=== PATIENT | female | born 1995 | race Caucasian/White ===

== ENCOUNTER 2023-04-02 10:50 | Emergency (ER) | payer BC ==
[2023-04-02 11:16] VITALS: BP 121/66; PULSE 87; RESP 20; TEMP 99.1; BMI 28.3
[2023-04-02 11:37] LABS: HCG,QUALITATIVE URINE Negative
[2023-04-02 12:20] LABS: EPITHELIAL CELLS MANY /hpf
== END 2023-04-02 13:25 | disposition home or self-care (01) ==
LOC: FER 10:50
DX: M54.50 Low back pain, unspecified (principal); R30.0 Dysuria; R31.9 Hematuria, unspecified
CPT/HCPCS: 74176-TC; 81003; 81015; 84703; 87086; 99284-25

== ENCOUNTER 2024-12-17 20:09 | Emergency (ER) | payer BC, OTHER ==
[2024-12-17 20:13] VITALS: BP 131/81; PULSE 77; RESP 18; TEMP 99.1; BMI 29.2
[2024-12-17] MEDS ORDERED: ACETAMINOPHEN 325 MG TABLET (FP) ONE (20:34)
[2024-12-17] MEDS: ACETAMINOPHEN 325 MG TABLET (FP) PO ONE (20:36)
== END 2024-12-17 20:59 | disposition home or self-care (01) ==
LOC: FER 20:09
DX: J12.1 Respiratory syncytial virus pneumonia (principal); R05.9 Cough, unspecified; Z20.822 Contact with and (suspected) exposure to COVID-19
CPT/HCPCS: 0241U-QW; 71046-TC-FY; 93005; 99285-25